=== PATIENT | female | born 1950 | race Hispanic/Latino ===

== ENCOUNTER 2017-11-02 09:01 | Day surgery (SDC) | payer BC ==
[2017-10-27 07:21] VITALS: BMI 35.7
[2017-11-02] MEDS ORDERED: Propofol 10 mg/ml Inj (20 ML) ONE (10:03)
[2017-11-02] MEDS ORDERED: Sodium Chloride 0.9% 1,000 ML IV SCH (10:45)
[2017-11-02 11:21] VITALS: PULSE 64; RESP 18; TEMP 98; O2SAT 96
[2017-11-02 11:29] VITALS: BP 152/56
== END 2017-11-02 12:05 | disposition home or self-care (01) ==
LOC: ENDO 09:01
PROVIDERS: ATTEND Specialist
DX: K25.4 Chronic or unspecified gastric ulcer with hemorrhage (principal); K20.9 Esophagitis, unspecified; D50.9 Iron deficiency anemia, unspecified
CPT/HCPCS: 43239; 88305; 88342; J2001; J2704; J7040 ×2